=== PATIENT | female | born 1970 | race Caucasian/White ===

== ENCOUNTER 2022-10-28 09:38 | Emergency (ER) | payer MEDICAID ==
[~2022-10-28] VITALS: Ht 162.6 cm; Wt 92.0 kg
[2022-10-28 09:45] VITALS: BP 180/83
[2022-10-28] MEDS ORDERED: HYDROcodone/acetaminophen 5mg/325mg tablet PO ONE (09:45)
[2022-10-28] MEDS ORDERED: TRAM50TA2 PO (10:18)
== END 2022-10-28 10:42 | disposition home or self-care (01) ==
LOC: ER 09:39
DX: S42.412A Displaced simple supracondylar fracture without intercondylar fracture of left humerus, initial encounter for closed fracture (principal); Z88.1 Allergy status to other antibiotic agents; Z79.899 Other long term (current) drug therapy; W18.39XA Other fall on same level, initial encounter; Y93.89 Activity, other specified; Y92.89 Other specified places as the place of occurrence of the external cause; Y99.8 Other external cause status
CPT/HCPCS: 73080; 99283; A4565

== ENCOUNTER 2023-12-06 17:26 | Inpatient (IN) | payer MEDICAID ==
[~2023-12-06] VITALS: Ht 162.6 cm; Wt 94.7 kg
[2023-12-06 18:53] LABS: BASOPHILS % (AUTO) 0.2 % (0-1); EOSINOPHILS # (AUTO) 0.3 X10'3 (0-0.9); EOSINOPHILS % (AUTO) 3.2 % (0-6); HEMATOCRIT 41.5 % (35.0-45.0); HEMOGLOBIN 13.1 g/dl (12.0-16.0); LYMPHOCYTES # (AUTO) 1.4 X10'3 (1.1-4.8); LYMPHOCYTES % (AUTO) 16.9 % (21-51); MEAN CORPUSCULAR HEMOGLOBIN 25.7 PG (27.0-31.0); MEAN CORPUSCULAR HGB CONC 31.7 g/dL (33.0-36.5); MEAN CORPUSCULAR VOLUME 81.1 FL (78-98); MEAN PLATELET VOLUME 8.8 FL (7.4-10.4); MONOCYTES # (AUTO) 0.5 X10'3 (0-0.9); MONOCYTES % (AUTO) 6.2 % (2-12); NEUTROPHILS % (AUTO) 73.5 % (42-75); PLATELET COUNT 241 X10'3 (140-440); RED BLOOD COUNT 5.11 X10'6 (4.20-5.60); RED CELL DISTRIBUTION WIDTH 16.2 % (11.5-14.5); WHITE BLOOD COUNT 8.2 X10'3 (4.5-11.0)
[2023-12-06 19:03] LABS: ALBUMIN 3.4 G/DL (3.4-5.0); ANION GAP 8 (8-16); BLOOD UREA NITROGEN 24 MG/DL (7-18); CALCIUM 8.8 MG/DL (8.5-10.1); CHLORIDE 106 MMOL/L (99-107); CREATININE 1.09 MG/DL (0.40-0.90); GLUCOSE 109 MG/DL (70-104); POTASSIUM 4.1 MMOL/L (3.5-5.1); PRO BRAIN NATRIURETIC PEPTIDE 3089 PG/ML (0-125); SODIUM 142 MMOL/L (135-145); TOTAL CARBON DIOXIDE 27.8 MMOL/L (24-32); eCRCL 52 ML/MIN; eGFR 53 ML/MIN
[2023-12-06] MEDS: aspirin 81mg tab.chew PO ONE (19:55)
[2023-12-06] MEDS: furosemide 10 MG/1 ML 10ml inj IV ONE (19:57)
[2023-12-06] MEDS: nitroGLYCERIN 1gm ointment UD TP ONE (20:00)
[2023-12-06] MEDS: ipratropium/albuterol 3ml nebule NEB ONE (20:25)
[2023-12-06 20:29] VITALS: PULSE 110; RESP 16; O2SAT 98
[2023-12-06 20:32] VITALS: PULSE 111; RESP 18; O2SAT 100
[2023-12-06 21:02] LABS: APTT 27 SECONDS (22-32); INR 0.9 INR; PROTHROMBIN TIME 10.2 SECONDS (9.0-12.0)
[2023-12-06] MEDS ORDERED: mag hydrox/Alum hydrox/simeth 30ml oral suspension PO PRN (21:30)
[2023-12-06] MEDS ORDERED: magnesium Cl slow-release 64mg tablet PO PRN (21:30)
[2023-12-06] MEDS ORDERED: potassium Cl 20 mEq SR tablet PO PRN ×2 (21:30)
[2023-12-06] MEDS ORDERED: potassium Cl 40MEQ/1/2NS 520ml 520 ML IV PRN (21:30)
[2023-12-06] MEDS ORDERED: ondansetron/PF 4mg/2ml inj IV PRN (21:30)
[2023-12-06] MEDS ORDERED: magnesium hydroxide 30ml (MOM) UD suspension PO PRN (21:30)
[2023-12-06] MEDS ORDERED: dextrose 50%-water 50ml dispensing syringe IV PRN (21:30)
[2023-12-06 21:40] LABS: ALANINE AMINOTRANSFERASE 167 U/L (12-78); ALBUMIN 3.8 G/DL (3.4-5.0); ALBUMIN/GLOBULIN RATIO 1.2 (1.1-1.5); ALKALINE PHOSPHATASE 129 IU/L (46-116); ASPARTATE AMINO TRANSFERASE 97 U/L (10-37); BILIRUBIN,DIRECT 0.2 MG/DL (0-0.3); BILIRUBIN,TOTAL 0.6 MG/DL (0.1-1.0); TOTAL PROTEIN 7.1 G/DL (6.4-8.2)
[2023-12-06 21:52] LABS: BILIRUBIN,URINE NEGATIVE (Neg); CLARITY,URINE CLEAR (Clear); COLOR,URINE STRAW (Yellow); GLUCOSE, URINE NEGATIVE (Neg); KETONES,URINE NEGATIVE (Neg); LEUKOCYTE ESTERASE ,URINE NEGATIVE (Neg); NITRITES, URINE NEGATIVE (Neg); OCCULT BLOOD,URINE TRACE-INTACT (Neg); PROTEIN,URINE NEGATIVE (Neg); UROBILINOGEN,URINE 0.2 E.U/dL (0.2-1.0)
[2023-12-06 21:57] LABS: UA COLLECTION TYPE VOIDED
[2023-12-06 21:59] LABS: BACTERIA,URINE NONE SEEN /HPF (Neg); MUCUS STRANDS FEW /LPF (Neg); RBC,URINE 0-2 /HPF (0-2); SQUAMOUS EPITHELIAL CELL,UR FEW /LPF (FEW); WBC,URINE 0-4 /HPF (0-4)
[2023-12-06] MEDS: LORazepam 2 mg/ml vial IV PRN (23:09)
[2023-12-07] VITALS (7 sets, daily range): BP systolic 104–143; BP diastolic 84–104; PULSE 75–81; RESP 12–20; TEMP 96.4–97.9; O2SAT 95–97
[2023-12-07] MEDS: heparin, porcine 5000 units/ml vial SQ SCH
[2023-12-07] MEDS: cloNIDine 0.1 mg tablet PO PRN (01:06)
[2023-12-07] MEDS: phenobarbital sod 130mg/ml inj. IV SCH ×2 (01:25→01:31)
[2023-12-07] MEDS ORDERED: phenobarbital inj 130 MG in normal saline 100ml IV soln 99 ML IV SCH (01:35)
[2023-12-07] MEDS: magnesium 4gm in 100ml NS 100 ML IV PRN (02:09)
[2023-12-07] MEDS: phenobarbital sod 130mg/ml inj. IV ONE (02:14)
[2023-12-07] MEDS: proCHLORperazine 10 MG/2 ml inj IV ONE (02:18)
[2023-12-07 02:19] LABS: MAGNESIUM 1.9 MG/DL (1.5-2.4)
[2023-12-07] MEDS ORDERED: loperamide 2mg capsule PO PRN (02:40)
[2023-12-07] MEDS ORDERED: LORazepam 2 mg/ml vial IV PRN (02:40)
[2023-12-07] MEDS: LORazepam 2 mg/ml vial IV ONE (02:50)
[2023-12-07] MEDS: metoprolol tartrate 1mg/ml inj IV STA (02:51)
[2023-12-07] MEDS: cloNIDine 0.1 MG/24 HOUR patch (7 day patch) TD SCH (03:22)
[2023-12-07] MEDS: multivitamins, therapeutics tablet PO SCH (07:35)
[2023-12-07] MEDS: docusate sod 100mg capsule PO SCH (07:35)
[2023-12-07] MEDS: atenolol 50mg tablet PO SCH (07:35)
[2023-12-07] MEDS: folic acid 1mg/0.2ml inj IV SCH (08:10)
[2023-12-07] MEDS: thiamine 100mg/ml 2ml inj. IV SCH (08:10)
[2023-12-07 08:51] LABS: BASOPHILS % (AUTO) 0.2 % (0-1); EOSINOPHILS # (AUTO) 0.1 X10'3 (0-0.9); EOSINOPHILS % (AUTO) 1.8 % (0-6); HEMATOCRIT 39.3 % (35.0-45.0); HEMOGLOBIN 12.6 g/dl (12.0-16.0); LYMPHOCYTES # (AUTO) 0.9 X10'3 (1.1-4.8); MEAN CORPUSCULAR HEMOGLOBIN 25.8 PG (27.0-31.0); MEAN CORPUSCULAR VOLUME 80.7 FL (78-98); MEAN PLATELET VOLUME 8.2 FL (7.4-10.4); MONOCYTES # (AUTO) 0.4 X10'3 (0-0.9); MONOCYTES % (AUTO) 5.4 % (2-12); NEUTROPHILS # (AUTO) 6.2 X10'3 (1.8-7.7); NEUTROPHILS % (AUTO) 80.6 % (42-75); PLATELET COUNT 223 X10'3 (140-440); RED BLOOD COUNT 4.88 X10'6 (4.20-5.60); RED CELL DISTRIBUTION WIDTH 16.1 % (11.5-14.5); WHITE BLOOD COUNT 7.7 X10'3 (4.5-11.0)
[2023-12-07 09:13] LABS: ALANINE AMINOTRANSFERASE 134 U/L (12-78); ALBUMIN 3.1 G/DL (3.4-5.0); ALBUMIN/GLOBULIN RATIO 0.9 (1.1-1.5); ALKALINE PHOSPHATASE 105 IU/L (46-116); ANION GAP 11 (8-16); ASPARTATE AMINO TRANSFERASE 61 U/L (10-37); BILIRUBIN,TOTAL 0.7 MG/DL (0.1-1.0); BLOOD UREA NITROGEN 20 MG/DL (7-18); BUN/CREATININE RATIO 20.8 (10.0-20.0); CALCIUM 8.9 MG/DL (8.5-10.1); CHLORIDE 105 MMOL/L (99-107); CREATININE 0.96 MG/DL (0.40-0.90); GLUCOSE 121 MG/DL (70-104); POTASSIUM 3.8 MMOL/L (3.5-5.1); SODIUM 144 MMOL/L (135-145); TOTAL CARBON DIOXIDE 27.7 MMOL/L (24-32); TOTAL PROTEIN 6.5 G/DL (6.4-8.2); eCRCL 59 ML/MIN; eGFR 61 ML/MIN
[2023-12-07] MEDS: furosemide 40mg/4ml inj IV SCH (10:17)
[2023-12-07 23:34] LABS: URINE AMPHETAMINE SCREEN POSITIVE (Neg); URINE BARBITUATE SCREEN POSITIVE (Neg); URINE BENZODIAZEPINES SCREEN NEGATIVE (Neg); URINE CANNABINOID SCREEN NEGATIVE (Neg); URINE COCAINE SCREEN NEGATIVE (Neg); URINE METHADONE SCREEN NEGATIVE (Neg); URINE OPIATE SCREEN NEGATIVE (Neg); URINE PHENCYCLIDINE SCREEN NEGATIVE (Neg)
[2023-12-08 06:00] VITALS: BP 143/105; PULSE 85; RESP 17; TEMP 97.7; O2SAT 96
[2023-12-08 08:41] LABS: BASOPHILS % (AUTO) 0.2 % (0-1); EOSINOPHILS # (AUTO) 0.3 X10'3 (0-0.9); EOSINOPHILS % (AUTO) 3.1 % (0-6); HEMATOCRIT 42.4 % (35.0-45.0); HEMOGLOBIN 13.7 g/dl (12.0-16.0); LYMPHOCYTES # (AUTO) 1.7 X10'3 (1.1-4.8); LYMPHOCYTES % (AUTO) 18.2 % (21-51); MEAN CORPUSCULAR HEMOGLOBIN 25.9 PG (27.0-31.0); MEAN CORPUSCULAR HGB CONC 32.2 g/dL (33.0-36.5); MEAN CORPUSCULAR VOLUME 80.3 FL (78-98); MEAN PLATELET VOLUME 8.4 FL (7.4-10.4); MONOCYTES # (AUTO) 0.8 X10'3 (0-0.9); MONOCYTES % (AUTO) 8.3 % (2-12); NEUTROPHILS # (AUTO) 6.4 X10'3 (1.8-7.7); NEUTROPHILS % (AUTO) 70.2 % (42-75); PLATELET COUNT 257 X10'3 (140-440); RED BLOOD COUNT 5.27 X10'6 (4.20-5.60); RED CELL DISTRIBUTION WIDTH 15.9 % (11.5-14.5); WHITE BLOOD COUNT 9.1 X10'3 (4.5-11.0)
[2023-12-08 08:58] LABS: ALANINE AMINOTRANSFERASE 106 U/L (12-78); ALBUMIN 3.1 G/DL (3.4-5.0); ALKALINE PHOSPHATASE 114 IU/L (46-116); ANION GAP 8 (8-16); ASPARTATE AMINO TRANSFERASE 43 U/L (10-37); BILIRUBIN,TOTAL 0.6 MG/DL (0.1-1.0); BLOOD UREA NITROGEN 24 MG/DL (7-18); BUN/CREATININE RATIO 21.2 (10.0-20.0); CALCIUM 8.5 MG/DL (8.5-10.1); CHLORIDE 105 MMOL/L (99-107); CREATININE 1.13 MG/DL (0.40-0.90); GLUCOSE 116 MG/DL (70-104); POTASSIUM 3.9 MMOL/L (3.5-5.1); SODIUM 142 MMOL/L (135-145); TOTAL CARBON DIOXIDE 29.5 MMOL/L (24-32); TOTAL PROTEIN 6.2 G/DL (6.4-8.2); eCRCL 50 ML/MIN; eGFR 51 ML/MIN
[2023-12-08] MEDS: pantoprazole 40mg Tablet.DR PO SCH (09:27)
[2023-12-08 10:00] VITALS: BP 140/82; PULSE 86; RESP 18; TEMP 98.7; O2SAT 95
[2023-12-08] MEDS: acetaminophen 325mg tablet PO PRN (11:13)
[2023-12-08 18:00] VITALS: BP 119/95; PULSE 75; RESP 18; TEMP 98.1; O2SAT 99
[2023-12-08 20:00] VITALS: BP_SYST 133; BP_SYST 138; BP_SYST 139; BP_DIAS 102; BP_DIAS 92; BP_DIAS 94; PULSE 87; PULSE 91; RESP 16; O2SAT 96
[2023-12-08] MEDS: LORazepam 1 MG tablet PO PRN (20:07)
[2023-12-08 22:00] VITALS: BP 133/92; PULSE 86; RESP 18; TEMP 98.7; O2SAT 96
[2023-12-08] MEDS: carVEDilol 3.125mg tablet PO SCH (22:00)
[2023-12-09] VITALS (7 sets, daily range): BP systolic 108–151; BP diastolic 75–114; PULSE 77–90; RESP 17–18; TEMP 97.9–98.2; O2SAT 91–96
[2023-12-09 07:33] LABS: BASOPHILS % (AUTO) 0.4 % (0-1); EOSINOPHILS # (AUTO) 0.2 X10'3 (0-0.9); EOSINOPHILS % (AUTO) 1.7 % (0-6); HEMATOCRIT 43.1 % (35.0-45.0); HEMOGLOBIN 13.9 g/dl (12.0-16.0); LYMPHOCYTES % (AUTO) 20.2 % (21-51); MEAN CORPUSCULAR HEMOGLOBIN 25.8 PG (27.0-31.0); MEAN CORPUSCULAR HGB CONC 32.2 g/dL (33.0-36.5); MEAN CORPUSCULAR VOLUME 80.3 FL (78-98); MEAN PLATELET VOLUME 8.4 FL (7.4-10.4); MONOCYTES # (AUTO) 0.9 X10'3 (0-0.9); MONOCYTES % (AUTO) 9.5 % (2-12); NEUTROPHILS # (AUTO) 6.7 X10'3 (1.8-7.7); NEUTROPHILS % (AUTO) 68.2 % (42-75); PLATELET COUNT 247 X10'3 (140-440); RED BLOOD COUNT 5.38 X10'6 (4.20-5.60); RED CELL DISTRIBUTION WIDTH 15.8 % (11.5-14.5); WHITE BLOOD COUNT 9.9 X10'3 (4.5-11.0)
[2023-12-09 08:00] LABS: ALANINE AMINOTRANSFERASE 136 U/L (12-78); ALBUMIN 2.9 G/DL (3.4-5.0); ALBUMIN/GLOBULIN RATIO 0.9 (1.1-1.5); ALKALINE PHOSPHATASE 132 IU/L (46-116); ANION GAP 8 (8-16); ASPARTATE AMINO TRANSFERASE 63 U/L (10-37); BILIRUBIN,TOTAL 0.6 MG/DL (0.1-1.0); BLOOD UREA NITROGEN 23 MG/DL (7-18); BUN/CREATININE RATIO 20.4 (10.0-20.0); CALCIUM 8.7 MG/DL (8.5-10.1); CHLORIDE 102 MMOL/L (99-107); CREATININE 1.13 MG/DL (0.40-0.90); GLUCOSE 122 MG/DL (70-104); POTASSIUM 3.5 MMOL/L (3.5-5.1); SODIUM 140 MMOL/L (135-145); TOTAL CARBON DIOXIDE 29.7 MMOL/L (24-32); TOTAL PROTEIN 6.3 G/DL (6.4-8.2); eCRCL 50 ML/MIN; eGFR 51 ML/MIN
[2023-12-09] MEDS: spironolactone 25 MG tablet PO SCH (08:02)
[2023-12-09] MEDS: lisinopril 5mg tablet PO SCH (08:02)
[2023-12-09] MEDS: EMPAGLIFLOZIN 10 MG TABLET PO SCH (08:03)
[2023-12-09] MEDS: ibuprofen tablet 400 MG TABLET PO PRN (12:28)
[2023-12-09] MEDS ORDERED: LORA-269 PO (12:44)
[2023-12-10 06:58] LABS: BASOPHILS % (AUTO) 0.4 % (0-1); EOSINOPHILS # (AUTO) 0.2 X10'3 (0-0.9); HEMATOCRIT 45.2 % (35.0-45.0); HEMOGLOBIN 14.8 g/dl (12.0-16.0); LYMPHOCYTES # (AUTO) 1.8 X10'3 (1.1-4.8); LYMPHOCYTES % (AUTO) 17.1 % (21-51); MEAN CORPUSCULAR HGB CONC 32.7 g/dL (33.0-36.5); MEAN CORPUSCULAR VOLUME 79.6 FL (78-98); MEAN PLATELET VOLUME 8.5 FL (7.4-10.4); MONOCYTES # (AUTO) 0.9 X10'3 (0-0.9); MONOCYTES % (AUTO) 8.8 % (2-12); NEUTROPHILS # (AUTO) 7.4 X10'3 (1.8-7.7); NEUTROPHILS % (AUTO) 71.7 % (42-75); PLATELET COUNT 275 X10'3 (140-440); RED BLOOD COUNT 5.67 X10'6 (4.20-5.60); RED CELL DISTRIBUTION WIDTH 16.2 % (11.5-14.5); WHITE BLOOD COUNT 10.4 X10'3 (4.5-11.0)
[2023-12-10 07:15] LABS: ALANINE AMINOTRANSFERASE 102 U/L (12-78); ALBUMIN 3.2 G/DL (3.4-5.0); ALBUMIN/GLOBULIN RATIO 0.9 (1.1-1.5); ALKALINE PHOSPHATASE 128 IU/L (46-116); ANION GAP 10 (8-16); ASPARTATE AMINO TRANSFERASE 30 U/L (10-37); BILIRUBIN,TOTAL 0.6 MG/DL (0.1-1.0); BLOOD UREA NITROGEN 26 MG/DL (7-18); BUN/CREATININE RATIO 20.5 (10.0-20.0); CALCIUM 8.6 MG/DL (8.5-10.1); CHLORIDE 99 MMOL/L (99-107); CREATININE 1.27 MG/DL (0.40-0.90); GLUCOSE 111 MG/DL (70-104); POTASSIUM 3.2 MMOL/L (3.5-5.1); SODIUM 139 MMOL/L (135-145); TOTAL CARBON DIOXIDE 29.9 MMOL/L (24-32); TOTAL PROTEIN 6.9 G/DL (6.4-8.2); eCRCL 45 ML/MIN; eGFR 44 ML/MIN
[2023-12-10] MEDS: aspirin 81mg tab.chew PO SCH (07:58)
[2023-12-10 10:00] VITALS: BP_SYST 103; BP_SYST 110; BP_SYST 115; BP_DIAS 61; BP_DIAS 64; BP_DIAS 85; PULSE 68; PULSE 80; PULSE 82; RESP 15; TEMP 97.3; O2SAT 92
[2023-12-10] MEDS: folic acid 1mg/0.2ml inj IV SCH (10:03)
[2023-12-10] MEDS ORDERED: ASPI81TA53 PO (10:37)
[2023-12-10] MEDS ORDERED: FURO-150 PO (10:37)
[2023-12-10] MEDS ORDERED: SPIR25TA PO (10:37)
[2023-12-10] MEDS ORDERED: LISI5TAB22 PO (10:37)
[2023-12-10] MEDS ORDERED: EMPA10TA PO (10:37)
[2023-12-10] MEDS ORDERED: COR3.125T PO (10:37)
[2023-12-11] MEDS ORDERED: folic acid 1mg tablet PO SCH (08:00)
[2023-12-11] MEDS ORDERED: thiamine 100mg tablet PO SCH (08:00)
== END 2023-12-10 12:25 | disposition home or self-care (01) | DRG 194 ==
LOC: ER 17:26 → ED HOLD 21:37 → EDBEDREQ 12-07 04:52 → ORTHO 4S 12-07 09:57
PROVIDERS: ADMIT Internal Medicine Critical Care Medicine; ATTEND Internal Medicine
DX: I11.0 Hypertensive heart disease with heart failure (principal); I21.A1 Myocardial infarction type 2; I42.9 Cardiomyopathy, unspecified; I50.23 Acute on chronic systolic (congestive) heart failure; F10.10 Alcohol abuse, uncomplicated; K21.9 Gastro-esophageal reflux disease without esophagitis; N17.9 Acute kidney failure, unspecified; Z79.84 Long term (current) use of oral hypoglycemic drugs; Z79.899 Other long term (current) drug therapy; Z88.8 Allergy status to other drugs, medicaments and biological substances
CPT/HCPCS: 36415; 71045; 80048; 80053; 80076; 80305; 81001; 83735; 83880; 84484; 85025; 85610; 85730; 87081; 93005; 93306; 94640; 94760; 99291; A4615; G0378; J0780; J1644; J1940; J2060; J2560; J3411; J3475; J3490

== ENCOUNTER 2024-11-03 09:18 | Emergency (ER) | payer MEDICAID ==
[~2024-11-03] VITALS: Ht 162.6 cm; Wt 101.1 kg
[~2024-11-03 09:18] MED LIST: ASPI81TA53 PO; CARV3.1232 PO; EMPA10TA PO; FURO-150 PO; LISI5TAB22 PO; LORA-269 PO; SPIR25TA PO
[2024-11-03] MEDS: HYDROcodone/acetaminophen 5mg/325mg tablet PO ONE (09:53)
[2024-11-03] MEDS: ketorolac trometh 30MG/ML vial 30 MG/ML VIAL IM ONE (09:53)
[2024-11-03 10:36] VITALS: BP 144/99; PULSE 79; RESP 16; O2SAT 99
[2024-11-03] MEDS ORDERED: HYDR-3965 PO (10:56)
[2024-11-03 11:10] VITALS: TEMP 97.9
== END 2024-11-03 11:22 | disposition home or self-care (01) ==
LOC: ER 09:18
DX: S22.31XA Fracture of one rib, right side, initial encounter for closed fracture (principal); S62.322A Displaced fracture of shaft of third metacarpal bone, right hand, initial encounter for closed fracture; F10.90 Alcohol use, unspecified, uncomplicated; Z79.82 Long term (current) use of aspirin; Z79.84 Long term (current) use of oral hypoglycemic drugs; Z79.899 Other long term (current) drug therapy; Y90.9 Presence of alcohol in blood, level not specified; W06.XXXA Fall from bed, initial encounter; Y93.89 Activity, other specified; Y92.89 Other specified places as the place of occurrence of the external cause; Y99.8 Other external cause status
CPT/HCPCS: 29125; 71101; 73130; 96372; 99284; J1885